=== PATIENT | male | born 1965 | race Caucasian/White ===

== ENCOUNTER → 2021-09-20 10:49 | Outpatient (BNVA) | payer OTHER, SELFPAY | PROVIDERS: PCP Internal Medicine Endocrinology, Diabetes & Metabolism; Visit Provider Nurse Practitioner Family ==

== ENCOUNTER → 2021-10-24 13:42 | Outpatient (REF) | payer OTHER, SELFPAY | LOC: HO.SL 13:42 | PROVIDERS: PCP Internal Medicine Endocrinology, Diabetes & Metabolism; Visit Provider Nurse Practitioner Family | DX: R06.83 Snoring (principal); R06.81 Apnea, not elsewhere classified; R40.0 Somnolence | CPT/HCPCS: 95806 ==

== ENCOUNTER 2023-07-06 08:51 | Outpatient (AMB) | payer OTHER, SELFPAY ==
--- NOTE | 2023-07-06 09:04 | MHC.OFFVIS ---
Intake Vital Signs 07/06/23 09:05 Height 5 ft 9 in Weight 203 lb 6 oz BMI 30.0 BP 118/72 Blood Pressure Location Lt brachial Position Sitting Respiration 16 Pulse 89 Pulse Source Pulse Oximeter Pulse Oximetry (%) 93 Oxygen Delivery Method Room Air Intake Visit Reasons: Follow up for RADHA - Confirmed Intake Note: Pt presents tot he office for follow up of RADHA. Pt reports he had PSG last year but never received his equipment. [employer] Required: No Allergies erythromycin base [ERYTHROMYCIN BASE] Allergy (Unknown, Unverified 07/06/23 09:05) SWELLING HPI HPI Comments History of Present Illness Details 57 y/o male patient presents for follow up of sleep study. Pt had a home sleep study done in 10/2021. The home sleep study result was significant for a mild degree of sleep apnea with increased severity in supine sleep. The total AHI was 12/hr, supine AHI was 29/hr and oxygen gracie was 86%. APAP [id number] ordered. 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 Pt continues to endorse non refreshing sleep with excessive daytime sleepiness. He reports loud snoring, gasping arousals and nocturia. Sleep questionnaire: Have you ever been diagnosed with a sleep disorder? No. Have you ever had a sleep study in the past? No. Have you ever been treated for a sleep disorder? No. Do you take medications for a sleep disorder? No. Do you snore? Yes, very loudly. Do you wake up gasping at night? Yes. Do you have episodes of apneas? Yes. If yes, are they witnessed? Yes, by . Do you have episodes of nocturnal chest pain or dyspnea? Occasionally. Do you have difficulty initiating sleep? No. Do you have difficulty maintaining sleep? Yes, due to body pain and frequent urination. Do you wake up tired? Yes. Do you have headaches upon awakening? No but has neck pain in the morning. Do you wake up with dry mouth or throat? Occasionally. Do you have GERD? Yes. Do you have nocturia? Yes 3-4 times throughout the night. Do you have nocturnal leg cramps? No, had in the past. Do you have symptoms of restless legs? No. Do you act out your dreams? No. Sleep hygiene questionnaire: What is your usual sleep routine? Usual bedtime is at 8-9 pm; Usual wakeup time is at 4:30 am. Do you take naps? Sometimes. Is your sleep environment cool, dark, and quiet? Yes. Do you exercise? No. Do you take caffeine or other stimulants? 2 cups of coffee in the morning. Do you use electronics in bed? No. What is your work schedule? 12 hr, dayshift. Hypersomnolence questionnaire: Do you have daytime tiredness or fatigue? Yes. Do you easily fall asleep when inactive? Yes. Have you ever had episodes of sudden weakness? No. Have you ever had episodes of sudden weakness associated with strong emotions? No. [place] sleepiness scale: 10 [facility] Medical History Kidney stone Surgical History History of hernia surgery Family History Father HTN (hypertension) Hyperlipidemia Mother No problems noted. Brother Anxiety Social History Alcohol intake: current Patient Tobacco Use Status: Never used Tobacco Review of Systems Const All systems reviewed & are unremarkable except as noted in HPI and below Physical Exam Vital Signs: Last Vital Signs Pulse 89 07/06/23 09:05 Resp 16 07/06/23 09:05 BP 118/72 07/06/23 09:05 Pulse Ox 93 07/06/23 09:05 Oxygen Delivery Method Room Air 07/06/23 09:05 BMI result Body Mass Index 30.0 Const General: cooperative and no acute distress Nutritional Appearance: overweight Orientation/consciousness: patient oriented x3 Limitations: no limitations HEENT Head: Yes normocephalic Throat: Yes other (mallampati score 4) Resp Effort & Inspection: normal respiratory effort and able to speak in complete sentences Auscultation: clear to auscultation bilaterally Neuro General: patient oriented x3 and CN's II-XI intact bilaterally Cognition (Neuro): normal cognition Gait exam (Neuro): Normal gait present Psych Appearance: grossly normal Mental Status: mental status grossly normal Speech and movement: Normal speech and movement present Assessment & Plan Assessment & Plan (1) RADHA (obstructive sleep apnea): Comment: Mild degree of sleep apnea with increased severity in supine sleep. The AHI was 12/hr, supine AHI was 29/hr and oxygen gracie was 86%. Code(s): G47.33 - Obstructive sleep apnea (adult) (pediatric) Plan The home sleep study was to apply for new CPAP. Advised patient to undergo repeat home sleep study to assess sleep apnea and apply for new CPAP. Sleep hygiene education provided. Wt reduction advised. Orders: Orders RT home sleep study Today G47.33 - Obstructive sleep apnea (adult) (pediatric), R40.0 - Somnolence Coding Level of Care Code Est Pt Level 3 (42101) Diagnoses RADHA (obstructive sleep apnea) G47.33
[2023-07-06 09:05] VITALS: BP 118/72; PULSE 89; RESP 16; O2SAT 93
== END 2023-07-06 09:28 | disposition home or self-care (01) ==
PROVIDERS: PCP Internal Medicine Endocrinology, Diabetes & Metabolism; Visit Provider Nurse Practitioner Family
DX: G47.33 Obstructive sleep apnea (adult) (pediatric) (principal)
CPT/HCPCS: 99213

== ENCOUNTER → 2023-07-06 08:51 | Outpatient (BNVA) | payer OTHER, SELFPAY | PROVIDERS: PCP Internal Medicine Endocrinology, Diabetes & Metabolism; Visit Provider Nurse Practitioner Family ==

== ENCOUNTER → 2023-08-30 07:55 | Outpatient (REF) | payer OTHER, SELFPAY | LOC: HO.SL 07:55 | PROVIDERS: PCP Internal Medicine Endocrinology, Diabetes & Metabolism; Visit Provider Nurse Practitioner Family | DX: G47.33 Obstructive sleep apnea (adult) (pediatric) (principal); R40.0 Somnolence | CPT/HCPCS: 95806 ==

== ENCOUNTER → 2023-08-30 08:06 | Outpatient (BNV) | payer OTHER, SELFPAY | PROVIDERS: PCP Internal Medicine Endocrinology, Diabetes & Metabolism; Visit Provider Internal Medicine | DX: G47.33 Obstructive sleep apnea (adult) (pediatric) (principal) | CPT/HCPCS: 95806 ==

== ENCOUNTER 2023-10-04 14:00 | Outpatient (RCR) | payer OTHER, SELFPAY | END 2023-10-11 14:23 | disposition home or self-care (01) | LOC: HO.PTCHIC 14:00 | PROVIDERS: PCP Internal Medicine Endocrinology, Diabetes & Metabolism; Visit Provider Orthopaedic Surgery | DX: Z98.890 Other specified postprocedural states (principal) | CPT/HCPCS: 97110; 97140; 97161 ==

== ENCOUNTER 2023-10-30 08:23 | Outpatient (AMB) | payer OTHER, SELFPAY ==
[2023-10-30 08:24] VITALS: BP 114/74; PULSE 73; O2SAT 98; BMI 31.2
--- NOTE | 2023-10-30 08:24 | MHC.OFFVIS ---
Intake Vital Signs 10/30/23 08:24 Height 5 ft 9 in Weight 211 lb BMI 31.2 BP 114/74 Blood Pressure Location Rt brachial Position Sitting Pulse 73 Pulse Source Pulse Oximeter Pulse Oximetry (%) 98 Oxygen Delivery Method Room Air Intake Visit Reasons: 4 mo f/u - RADHA - Confirmed Intake Note: Patient following up on sleep apnea Allergies erythromycin base [ERYTHROMYCIN BASE] Allergy (Unknown, Unverified 10/30/23 08:26) SWELLING HPI HPI Comments History of Present Illness Details 58 y/o male patient presents for follow up of sleep study. The home sleep study result was significant for a moderately, severe degree of sleep apnea. The AHI was 23/hr, supine AHI was 27/hr and oxygen gracie was 76%. The O2 sat below 88% was for 17 min. Pt started APAP at [id number]. The CPAP compliance and therapy response (07/28/23-10/25/23) reviewed. The usage days 35 days and the average usage hours 6 hrs. The max pressure was 15.2 and the residual AHI was 2.1/hr. Pt reports he sleeps well, rested and daytime tiredness has improved. However, he feels he does not get enough pressure when it starts. [facility] Medical History Kidney stone Surgical History History of hernia surgery Family History Father HTN (hypertension) Hyperlipidemia Mother No problems noted. Brother Anxiety Social History Alcohol intake: current Patient Tobacco Use Status: Never used Tobacco Review of Systems Const All systems reviewed & are unremarkable except as noted in HPI and below Physical Exam Vital Signs: Last Vital Signs Pulse 73 10/30/23 08:24 BP 114/74 10/30/23 08:24 Pulse Ox 98 10/30/23 08:24 Oxygen Delivery Method Room Air 10/30/23 08:24 BMI result Body Mass Index 31.2 Const General: cooperative and no acute distress Nutritional Appearance: overweight Orientation/consciousness: patient oriented x3 Limitations: no limitations HEENT Head: Yes normocephalic Throat: Yes other (mallampati score 4) Resp Effort & Inspection: normal respiratory effort and able to speak in complete sentences Auscultation: clear to auscultation bilaterally Neuro General: patient oriented x3 and CN's II-XI intact bilaterally Cognition (Neuro): normal cognition Gait exam (Neuro): Normal gait present Psych Appearance: grossly normal Mental Status: mental status grossly normal Speech and movement: Normal speech and movement present Assessment & Plan Assessment & Plan (1) RADHA (obstructive sleep apnea): Comment: Mild degree of sleep apnea with increased severity in supine sleep. The AHI was 12/hr, supine AHI was 29/hr and oxygen gracie was 86%. Code(s): G47.33 - Obstructive sleep apnea (adult) (pediatric) Plan Continue to use APAP at [id number] as patient experiences good clinical effects, sleep quality and breathing has improved. Increased ramp pressure to 6 cmH2O. Stressed compliance, use CPAP nightly and more than 4 hrs. Wt reduction advised. Coding Level of Care Code Est Pt Level 3 (53150) Diagnoses RADHA (obstructive sleep apnea) G47.33
== END 2023-10-30 08:37 | disposition home or self-care (01) ==
PROVIDERS: PCP Internal Medicine Endocrinology, Diabetes & Metabolism; Visit Provider Nurse Practitioner Family
DX: G47.33 Obstructive sleep apnea (adult) (pediatric) (principal)
CPT/HCPCS: 99213

== ENCOUNTER → 2023-10-30 08:23 | Outpatient (BNVA) | payer OTHER, SELFPAY | PROVIDERS: PCP Internal Medicine Endocrinology, Diabetes & Metabolism; Visit Provider Nurse Practitioner Family ==